=== PATIENT | female | born 1950 | race Caucasian/White ===

== ENCOUNTER → 2016-04-14 09:44 | Outpatient (CLI) | payer MEDICARE, OTHER ==
[2012-05-29 08:35] VITALS: BMI 20.9
[2016-04-16 03:10] LABS: OVA + PARASITE EXAM Final report (())
== END | disposition home or self-care (01) ==
LOC: D.LAB 09:44
PROVIDERS: Family Medicine
DX: R19.7 Diarrhea, unspecified (principal)

== ENCOUNTER → 2016-05-24 15:51 | Outpatient (CLI) | payer MEDICARE, OTHER ==
[2012-05-29 08:35] VITALS: BMI 20.9
== END | disposition home or self-care (01) ==
LOC: D.RAD 15:51
DX: K59.00 Constipation, unspecified (principal)

== ENCOUNTER → 2016-07-07 11:08 | Outpatient (CLI) | payer MEDICARE, OTHER ==
[2012-05-29 08:35] VITALS: BMI 20.9
== END | disposition home or self-care (01) ==
LOC: D.RAD 11:08
DX: R11.0 Nausea (principal); R14.0 Abdominal distension (gaseous)